=== PATIENT | female | born 1990 | race Caucasian/White ===

== ENCOUNTER → 2018-04-11 | Outpatient (CLI) | payer OTHER ==
[~2018-04-11] VITALS: Ht 160 cm; Wt 70.4 kg
[~2018-04-11] MED LIST: FLUOXETINE HCL10 MG PO; KEFLEX500 MG PO; MOTRIN800 MG PO; PRENATAL VITAM1 EA11 PO; PROZAC20 MG PO
[2018-04-11 07:41] VITALS: BP 137/73
== END | disposition home or self-care (01) ==
LOC: IVINF 07:30
DX: Z34.83 Encounter for supervision of other normal pregnancy, third trimester (principal); Z31.82 Encounter for Rh incompatibility status; Z3A.28 28 weeks gestation of pregnancy; Z67.41 Type O blood, Rh negative
CPT/HCPCS: 96372; J2790